=== PATIENT | male | born 1990 | race Caucasian/White ===

== ENCOUNTER 2017-04-13 11:20 | Inpatient (IN) ==
[2017-04-13] MEDS ORDERED: IPRATROPIUM/ALBUTEROL 3 ML AMPUL.NEB NEB ONE ×2 (11:32→13:55)
--- NOTE | 2017-04-13 11:45 | Emergency Department Note ---
General Adult HPI - General Chief complaint: Fever Stated complaint: fever, cough Time Seen by Provider: 04/13/17 11:30 Source: patient Mode of arrival: ambulatory Limitations: no limitations - History of Present Illness HPI Narrative: This patient has been ill for about 2 weeks. She had a lot of nausea vomiting but now is mainly respiratory symptoms. He did get a flu shot this year. 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 - Related Data Home Medications Medication Instructions Recorded Confirmed Escitalopram [Lexapro] 10 mg PO DAILY 04/13/17 04/13/17 Levothyroxine Sodium [Levoxyl] 50 mcg PO DAILY 04/13/17 04/13/17 Mirtazapine [Remeron] 30 mg PO HS 04/13/17 04/13/17 Montelukast [Singular] 10 mg PO HS 04/13/17 04/13/17 Previous Rx's Medication Instructions Recorded Azithromycin [Zithromax] 250 mg PO DAILY #4 tab 04/13/17 Ipratropium/Albuterol [Duoneb] 3 ml NEB Q4HRT #30 ampul.neb 04/13/17 Allergies Allergy/AdvReac Type Severity Reaction Status Date / Time Sulfa (Sulfonamide AdvReac Intermediate Rash Verified 04/13/17 11:22 Antibiotics) Review of Systems All systems ED: reviewed and negative except as stated. Past Medical History - Past Medical History Medical history: Reports: thyroid disease, other (Pneumonia) Surgical history ED: Reports: other (Partial lobectomy) - Social History smoking status: Never smoker Physical Exam Limitations: no limitations General appearance: alert Head: atraumatic, normocephalic Eye: Present: normal appearance ENT: normal exam Neck: Present: normal inspection Chest: Present: normal inspection Respiratory: Present: normal lung sounds bilaterally Cardiovascular: Present: regular rate, normal rhythm, normal heart sounds Abdominal: Present: soft. Absent: distention, tenderness Neurological: Present: alert Psychiatric: Present: normal affect, normal mood Skin: Present: warm, dry, intact Course Vital Signs Temperature 99.7 F H 04/13/17 11:28 Pulse Rate 102 H 04/13/17 11:28 Respiratory Rate 24 H 04/13/17 11:28 Blood Pressure 99/56 04/13/17 11:28 Pulse Oximetry (%) 89 L 04/13/17 11:28 Temperature 99.7 F H 04/13/17 11:28 Pulse Rate 101 H 04/13/17 14:00 Respiratory Rate 20 04/13/17 14:00 Blood Pressure 106/69 04/13/17 12:57 Pulse Oximetry (%) 95 04/13/17 12:57 Medical Decision Making - MDM Narrative Medical decision making narrative: This patient does have a pneumonia and did not tolerate an IV pulled it out and was pretty agitated. However he does not seem that ill to me. He does have a high white count but he has minimal fever. O2 sat was 98 after a breathing treatment. I think he will do okay at home we did give him Zithromax half a bag IV and then a 500 mg tablet p.o. Be discharged on Zithromax and DuoNeb. - Lab Data Lab results reviewed: Yes I reviewed the patient's lab results. Result diagrams: 04/13/17 11:46 04/13/17 11:46 Lab Results 04/13/17 04/13/17 04/13/17 Range/Units 11:46 11:46 12:45 WBC 34.1 H* (4.5-11.0) K/mcL RBC 4.09 L (4.50-5.90) M/mcL Hgb 13.4 L (13.5-16.5) g/dL Hct 39.7 L (41.0-55.0) % MCV 97.2 (80.0-100.0) fL MCH 32.9 (26.0-34.0) pg MCHC 33.8 (31.0-36.0) g/dL RDW 14.0 (11.5-14.5) % Plt Count 221 (140-440) K/mcL MPV 8.9 (7.4-10.4) fL Total Counted 100 Seg Neutrophils % 83 H (38-78) % Band Neutrophils % 10 (0-10) % Lymphocytes % 4 L (15-49) % Monocytes % (Manual) 3 (1-12) % Platelet Estimate Normal (NORMAL) RBC Morphology Normal (NORMAL) VBG Lactic Acid 1.4 (0.5-2.2) mmol/L Sodium 138 (133-145) mmol/L Potassium 4.0 (3.3-5.1) mmol/L Chloride 100 (96-108) mmol/L Carbon Dioxide 26 (22-30) mmol/L Anion Gap 12.0 (8-16) BUN 20 (6-20) mg/dl Creatinine 1.2 (0.7-1.2) mg/dl GFR Calculation 82 Glucose 119 H (70-105) mg/dL Calcium 9.1 (8.6-10.4) mg/dl Total Bilirubin 0.5 (0.0-1.0) mg/dL AST 45 H (0-37) U/l ALT 41 H (0-40) U/l Alkaline Phosphatase 128 H (39-117) U/L Total Protein 7.5 (5.9-8.4) gm/dL Albumin 3.7 (3.2-5.2) gm/dL Globulin 3.8 H (2.2-3.7) gm/dL Albumin/Globulin Ratio 1.0 (1.0-2.3) - Radiology Data Radiology results reviewed: Yes I reviewed the patient's radiology results. Disposition Pt seen by [facility] SPECIALIST/PA only: No Clinical Impression: Community acquired pneumonia Disposition: Home, Self-Care Condition: Good Instructions: Pneumonia (ED) Prescriptions: Ipratropium/Albuterol [Duoneb] 3 ml NEB Q4HRT #30 ampul.neb Azithromycin [Zithromax] 250 mg PO DAILY #4 tab Referrals: Ximena Rosales PA-C [Primary Care Provider] - Time of Disposition: 14:10
[2017-04-13 12:20] LABS: Mean Cell Volume 97.2 fL (80.0-100.0); Mean Corpuscular HGB Conc 33.8 g/dL (31.0-36.0); Mean Corpuscular Hemoglobin 32.9 pg (26.0-34.0); Platelet Count 221 K/mcL (140-440); RBC 4.09 M/mcL (4.50-5.90)
--- NOTE | 2017-04-13 12:32 | XRay Report ---
CLINICAL INFORMATION: Shortness of breath COMPARISON: 04/21/2009 FINDINGS: Heart is upper limits of normal in size. 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 The remaining mediastinum and pulmonary vessels are normal. Moderate sized patchy infiltrate in the lingula partially obscures the heart border and left diaphragm. Probable small left pleural effusion noted. Bones and soft tissues are normal IMPRESSION: Moderate-sized infiltrate in the lingula. 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 Please correlate with clinical history Interpreted and Authenticated by: Porter Conde 04/13/17
[2017-04-13 12:38] LABS: ALT/SGPT 41 U/l (0-40); Albumin 3.7 gm/dL (3.2-5.2); Alkaline Phosphatase 128 U/L (39-117); Blood Urea Nitrogen 20 mg/dl (6-20)
[2017-04-13] MEDS ORDERED: cefTRIAXone 1 GM VIAL IV ONE (12:49)
[2017-04-13] MEDS ORDERED: AZITHROMYCIN 500 MG in DEXTROSE 5% IN WATER 250 ML IV ONE (12:49)
[2017-04-13 12:50] LABS: Band Neutrophils % 10 % (0-10); Lymphocytes % 4 % (15-49); Monocytes % (Manual) 3 % (1-12); Platelet Estimate NORMAL (NORMAL); RBC Morphology NORMAL (NORMAL); Segmented Neutrophils % 83 % (38-78)
[2017-04-13] MEDS ORDERED: 0.9 % SODIUM CHLORIDE 1,000 ML IV ONE (13:02)
[2017-04-13] MEDS ORDERED: AZITHROMYCIN 250 MG TABLET PO ONE (13:47)
[2017-04-13] MEDS ORDERED: predniSONE 20 MG TABLET PO ONE (14:19)
[2017-04-13] MEDS ORDERED: LORazepam 2 MG/ML VIAL IV PRN (15:05)
--- NOTE | 2017-04-13 15:19 | Internal Med History&Physical ---
Medical - H&P: [facility] Patient information: Note initiated : 04/13/17 at 3:09 pm Service Date, if different from initiated Date: [] Patient: Brice Dorantes 27 y/o M admitted on for Fever, Cough. Chief Complaint: [] History of present illness: Mr. Dorantes is a 27 year old Male with h/o down syndrome presents to the ER with mother and care provider, Patient has not been feeling well x 1 week, he had some congestion, and cough, the patients condition worsened over on tuesday when he had significant amounts of nausea and vomiting, he also had some fever, the patients GI symptoms improved but today was noted not to be breathing right, had some shortness of breath and fever and was therefore brought in the hospital for further management History from mother and care provider, pt did not talk to me, but seems to follow commands and was sitting comfortably in the bed. In the ER he had significant leucocytosis, and incrased oxygen need, Osat 88% on room air. He was give antibiotics zithromax, and rocehin, some d uonebs and steroids and admitted to the hospital for further management. pt had removed his IV access and did not wish pulse oximeter or any other devices on him. Mother aware that taking car of him in the hospital will not be easy and that we may have to use sedatives to keep him calm atleast to give Medications, she is agreeable for same. ROS unobtainable: due to mental status Medical - H&P: PMH Medical history: Medical History Community acquired pneumonia (Acute) downs syndrome asthma Surgical history: h/o lobectemy lung Family history: reviewed and not pertinent Social history: lives with parents has care givers Medical - H&P: Meds Home Medications Medication Instructions Recorded Confirmed Type Azithromycin [Zithromax] 250 mg PO DAILY #4 tab 04/13/17 Rx Escitalopram [Lexapro] 10 mg PO DAILY 04/13/17 04/13/17 History Ipratropium/Albuterol [Duoneb] 3 ml NEB Q4HRT #30 ampul.neb 04/13/17 Rx Levothyroxine Sodium [Levoxyl] 50 mcg PO DAILY 04/13/17 04/13/17 History Mirtazapine [Remeron] 30 mg PO HS 04/13/17 04/13/17 History Montelukast [Singular] 10 mg PO HS 04/13/17 04/13/17 History Allergies Allergy/AdvReac Type Severity Reaction Status Date / Time Sulfa (Sulfonamide AdvReac Intermediate Rash Verified 04/13/17 11:22 Antibiotics) Medical - H&P: Exam - Constitutional Vitals: Temp Pulse Resp BP Pulse Ox 99.7 F H 101 H 20 112/68 88 L 04/13/17 11:28 04/13/17 14:00 04/13/17 14:00 04/13/17 13:31 04/13/17 14:16 Exam: GENERAL: The patient is a well-developed, well-nourished in no apparent distress. Is alert and oriented x 1 VITAL SIGNS: Reviewed and as noted elsewhere. HEENT: Head is microchepalic, atraumatic,. Extraocular muscles are intact. Pupils are equal, round, and reactive to light. Nares appeared normal. Mouth appears any without lesions. Mucous membranes are moist. NECK: Normal to inspection, Supple, No lymphadenopathy or thyromegaly. LUNGS: Air entry equal on both sides, no wheezing, crackles or rhonchi noted. No accessory muscles of respiration HEART: Regular rate and rhythm normal, S1 and S2 heard, no Gallop, S3 or Rub Noted, No Gross murmur heard. ABDOMEN: Soft, nontender, and nondistended. Positive bowel sounds. No hepatosplenomegaly was noted. EXTREMITIES: No cyanosis, clubbing, rash, lesions or edema. NEUROLOGIC: Cranial nerves II through XII are grossly intact. Motor and Sensory System Grossly Intact PSYCHIATRIC: did not talk to me, flat affect. SKIN: No ulceration or wounds noted, No jaundice, No rash noted. Medical - H&P: Reslt - Labs CBC & Chem 7: 04/13/17 11:46 04/13/17 11:46 Labs: Short CBC 04/13/17 Range/Units 11:46 WBC 34.1 H* (4.5-11.0) K/mcL Hgb 13.4 L (13.5-16.5) g/dL Hct 39.7 L (41.0-55.0) % Plt Count 221 (140-440) K/mcL BMP 04/13/17 11:46 Sodium 138 Potassium 4.0 Chloride 100 Carbon Dioxide 26 BUN 20 Creatinine 1.2 Glucose 119 H Calcium 9.1 Liver Function 04/13/17 Range/Units 11:46 Total Bilirubin 0.5 (0.0-1.0) mg/dL AST 45 H (0-37) U/l ALT 41 H (0-40) U/l Alkaline Phosphatase 128 H (39-117) U/L Albumin 3.7 (3.2-5.2) gm/dL Medical - H&P: A/P - Narrative A/P Narrative: a/p severe sepsis Pneumonia, community acquired vs aspiration. acute hypoxic resp failure down syndrome abnl LFT Asthma exacerbation Depression? Plan Admit to med surgy Plan to get another IV access Patient is tolerating orals well, bp is stable, and pt will not keep IV for IV fluids so closely monitor hemodynamic status IV rocphin, zithromax and flagyl for pna duonebs and steroids for asthma (no wheeze on my exam but it seems it was present during er exam) resume home medictions for depression/ asthma/ monitor lft likely related to infection, consider workup if worsens. DVT hep Full code Regular diet patietn will be difficult to manage as he is not using oxygen mask or allowing iv asccess. ok to use prn ativan and use oral meds if we are not able to use IV.
[2017-04-13] MEDS ORDERED: HYDROmorphone 2 MG/ML SYRINGE IV PRN (15:43)
[2017-04-13] MEDS ORDERED: ACETAMINOPHEN 325 MG TABLET PO PRN (15:43)
[2017-04-13] MEDS ORDERED: ONDANSETRON 4 MG/2 ML VIAL IV PRN (15:43)
[2017-04-13] MEDS ORDERED: NALOXONE HCL 0.4 MG/ML VIAL IV PRN (15:43)
[2017-04-13] MEDS ORDERED: cefTRIAXone 1 GM in DEXTROSE 5% IN WATER 50 ML IV SCH (15:43)
[2017-04-13] MEDS ORDERED: LORazepam 2 MG/ML VIAL IM ONE ×2 (15:50→18:23)
[2017-04-13] MEDS: IPRATROPIUM/ALBUTEROL 3 ML AMPUL.NEB NEB SCH ×3 (17:35→23:30)
[2017-04-13] MEDS: metroNIDAZOLE 500 MG/100 ML BAG IV SCH ×2 (17:48→21:27)
[2017-04-13] MEDS ORDERED: OLANZapine 5 MG TABLET PO ONE (18:29)
[2017-04-13] MEDS ORDERED: OLANZapine 2.5 MG TABLET PO ONE (18:51)
[2017-04-13] MEDS: DOCUSATE SODIUM 100 MG CAPSULE PO SCH (20:48)
[2017-04-13] MEDS: MIRTAZAPINE 15 MG TABLET PO SCH (20:48)
[2017-04-13] MEDS: MONTELUKAST 10 MG TABLET PO SCH (20:49)
[2017-04-13] MEDS ORDERED: LORazepam 2 MG/ML VIAL IV ONE (20:59)
[2017-04-13] MEDS: 0.9 % SODIUM CHLORIDE 10 ML SYRINGE IV SCH (21:30)
[2017-04-14] MEDS: IPRATROPIUM/ALBUTEROL 3 ML AMPUL.NEB NEB SCH ×6 (04:27→22:45)
[2017-04-14] MEDS: 0.9 % SODIUM CHLORIDE 10 ML SYRINGE IV SCH ×3 (05:10→20:49)
[2017-04-14] MEDS: metroNIDAZOLE 500 MG/100 ML BAG IV SCH ×3 (05:10→21:09)
[2017-04-14 05:40] LABS: Basophils # (Auto) 0 K/mcL (0.0-0.3); Basophils % (Auto) 0 % (0.0-2.0); Eosinophils # (Auto) 0.2 K/mcL (0.0-0.7); Eosinophils % (Auto) 0.7 % (0.0-7.0); Granulocytes % (Auto) 93.5 % (38.0-78.0); Lymphocytes # (Auto) 1.1 K/mcL (1.5-4.8); Lymphocytes % (Auto) 4.5 % (15.5-49.0); Mean Cell Volume 99.1 fL (80.0-100.0); Mean Corpuscular HGB Conc 33.3 g/dL (31.0-36.0); Monocytes # (Auto) 0.3 K/mcL (0.1-0.9); Monocytes % (Auto) 1.3 % (1.0-12.0); Platelet Count 223 K/mcL (140-440); RBC 4.09 M/mcL (4.50-5.90); Red Cell Distribution Width 14.5 % (11.5-14.5)
[2017-04-14 06:04] LABS: ALT/SGPT 33 U/l (0-40); Albumin 3.4 gm/dL (3.2-5.2); Albumin/Globulin Ratio 0.9 (1.0-2.3); Alkaline Phosphatase 126 U/L (39-117); Bilirubin,Direct < 0.2 mg/dL (0.0-0.3); Blood Urea Nitrogen 16 mg/dl (6-20); Gamma Glutamyl Transpeptidase 51 U/L (8-61); Magnesium 2.5 mg/dL (1.6-2.5); Uric Acid 6.8 mg/dL (2.5-8.0)
[2017-04-14] MEDS: predniSONE 20 MG TABLET PO SCH (07:50)
[2017-04-14] MEDS: LEVOTHYROXINE 50 MCG TABLET PO SCH (07:50)
[2017-04-14] MEDS: LORazepam 2 MG/ML VIAL IV PRN ×2 (08:40→20:41)
[2017-04-14] MEDS: DOCUSATE SODIUM 100 MG CAPSULE PO SCH ×2 (09:55→20:40)
[2017-04-14] MEDS: cefTRIAXone 1 GM VIAL IV SCH (09:55)
[2017-04-14] MEDS: AZITHROMYCIN 250 MG in DEXTROSE 5% IN WATER 250 ML IV SCH (09:55)
[2017-04-14] MEDS: ESCITALOPRAM 10 MG TABLET PO SCH (09:55)
[2017-04-14] MEDS: ENOXAPARIN 40 MG/0.4 ML SYRINGE SQ SCH (09:55)
--- NOTE | 2017-04-14 10:20 | Internal Med Progress Note ---
Medical - PN: Subj Patient information: Note initiated : 04/14/17 at 10:09 am Service Date, if different from initiated Date: [] Patient: Brice Dorantes 27 y/o M admitted on 04/13/17 for Fever, Cough. Chief Complaint: [] Interval history: Mr. Dorantes is a 27 year old Male with h/o down syndrome presents to the ER with mother and care provider, Patient has not been feeling well x 1 week, he had some congestion, and cough, the patients condition worsened over on tuesday when he had significant amounts of nausea and vomiting, he also had some fever, the patients GI symptoms improved but today was noted not to be breathing right, had some shortness of breath and fever and was therefore brought in the hospital for further management History from mother and care provider, pt did not talk to me, but seems to follow commands and was sitting comfortably in the bed. In the ER he had significant leucocytosis, and increased oxygen need, Osat 88% on room air. He was give antibiotics zithromax, and rocehin, some d uonebs and steroids and admitted to the hospital for further management. pt had removed his IV access and did not wish pulse oximeter or any other devices on him. Mother aware that taking car of him in the hospital will not be easy and that we may have to use sedatives to keep him calm atleast to give Medications, she is agreeable for same. Colette 23 patient seen examined, overnight issues reviewed, multiple times IV needed to be placed due to patient ripping it off, the patient was given ativan which helped him sleep he still needs oxygen but is non compliant with its use, he is now coughing mother by the bed side IV antibiotics on going, pt non verbal to me, but did allow me to auscultate The patient labs show improvement in wbc, he still needs IV antbiotics, he could do with oral antibiotics and could go home. but should his condition worsen, I would rather have him here than home to intervene as quickly as possible, once he no longer needs oxygen then I would be more comfortable sending him home with oral antibiotics. Pertinent ROS: unable, pt mental status, downs - Constitutional Vitals: Vital Signs Temp Pulse Resp BP Pulse Ox 98.6 F 98 H 20 89/51 93 04/14/17 06:49 04/14/17 07:36 04/14/17 07:36 04/14/17 06:49 04/14/17 07:36 Period Temp Pulse Resp BP Sys/Martinez Pulse Ox Last 24 Hr 97.2 F-101.6 F 77-104 12-24 61-121/38-75 88-100 Intake and Output 04/13/17 04/14/17 04/14/17 21:59 05:59 13:59 Intake Total 470 / 470 525 / 525 Balance 470 / 470 525 / 525 Weight 150 lb 8 oz Intake & Output: Intake & Output 04/13/17 04/14/17 04/14/17 21:59 05:59 13:59 Intake Total 470 / 470 525 / 525 Balance 470 / 470 525 / 525 Weight 150 lb 8 oz Intake: IV 100 / 100 Oral 370 / 370 525 / 525 Other: Meal Breakfast Percent of Meal Consumed 100% Feeding Ability Assist with Tray Set Up # Voids 1 1 Exam: Constitutional; Afebrile, cooperative, alert, not in distress. Eyes- No icterus, , No periorbital swelling Neck- Midline trachea, supple Respiratory system: Air Entry equal on both sides, decreased air entry on left, basilar crackles noted. CVS- Rate rhythm regular, S1,S2 heard, no gallop, no rub. Abdomen- Soft nontender abdomen, no organomegaly, no tenderness, no guarding or rigidity, PEARL DIGGER- AOOx0, moving all extremities, no gross focal deficit noted. Medical - PN: Obj Da - Labs CBC & Chem 7: 04/14/17 04:34 04/14/17 04:34 Labs: Abnormal Lab Results 04/14/17 04/14/17 04/13/17 04:34 04:34 11:46 WBC 23.7 H RBC 4.09 L Hgb Hct 40.5 L Gran % 93.5 H Lymph % (Auto) 4.5 L Gran # 22.2 H Lymph # (Auto) 1.1 L Seg Neutrophils % Lymphocytes % Glucose 156 H 119 H AST 45 H ALT 41 H Alkaline Phosphatase 126 H 128 H Globulin 4.0 H 3.8 H Albumin/Globulin Ratio 0.9 L 04/13/17 11:46 WBC 34.1 H* RBC 4.09 L Hgb 13.4 L Hct 39.7 L Gran % Lymph % (Auto) Gran # Lymph # (Auto) Seg Neutrophils % 83 H Lymphocytes % 4 L Glucose AST ALT Alkaline Phosphatase Globulin Albumin/Globulin Ratio Meds: Medications Acetaminophen (Tylenol) 650 mg PO Q6HP PRN PRN Reason: PAIN/FEVER > 101 Last Admin: 04/13/17 18:14 Dose: 650 mg Albuterol/Ipratropium (Duoneb) 3 ml NEB Q4HRT [facility] Last Admin: 04/14/17 07:26 Dose: 3 ml Ceftriaxone Sodium (Rocephin) 1 gm IV DAILY [facility] Last Admin: 04/14/17 09:55 Dose: 1 gm Docusate Sodium (Colace) 100 mg PO BID [facility] Last Admin: 04/14/17 09:55 Dose: 100 mg Enoxaparin Sodium (Lovenox) 40 mg SQ DAILY [facility] Last Admin: 04/14/17 09:55 Dose: Not Given Escitalopram Oxalate (Lexapro) 10 mg PO DAILY [facility] Last Admin: 04/14/17 09:55 Dose: 10 mg Hydromorphone HCl (Dilaudid) 0.5 mg IV Q2HP PRN PRN Reason: PAIN LEVEL > 6 Azithromycin 250 mg/ Dextrose 250 mls @ 250 mls/hr IV DAILY [facility] Stop: 04/17/17 09:59 Last Admin: 04/14/17 09:55 Dose: 250 mls/hr Metronidazole (Flagyl) 500 mg in 100 mls @ 100 mls/hr IV Q8H [facility] Last Admin: 04/14/17 05:10 Dose: 100 mls/hr Levothyroxine Sodium (Synthroid) 50 mcg PO ACB [facility] Last Admin: 04/14/17 07:50 Dose: 50 mcg Lorazepam (Ativan) 1 mg IV Q2-4HP PRN PRN Reason: ANXIETY/SEDATION Last Admin: 04/14/17 08:40 Dose: 1 mg Mirtazapine (Remeron) 30 mg PO HS [facility] Last Admin: 04/13/17 20:48 Dose: 30 mg Montelukast Sodium (Singular) 10 mg PO HS [facility] Last Admin: 04/13/17 20:49 Dose: 10 mg Naloxone HCl (Narcan) 0.1 mg IV Q2MIN PRN PRN Reason: Opiate Reversal Ondansetron HCl (Zofran) 4 mg IV Q6HP PRN PRN Reason: Nausea And Vomiting Prednisone (Prednisone) 40 mg PO [facility] Stop: 04/18/17 07:59 Last Admin: 04/14/17 07:50 Dose: 40 mg Sodium Chloride (Saline Flush) 10 ml IV Q8 [facility] Last Admin: 04/14/17 05:10 Dose: 10 ml Medical - PN: A/P - Time Spent With Patient Total time spent is greater than 50% in coordination of care (as documented) at patient's floor/unit and/or counseling patient: - Narrative A/P Narrative: a/p severe sepsis Pneumonia, community acquired vs aspiration. acute hypoxic resp failure down syndrome abnl LFT Asthma exacerbation Depression? Plan monitor on med surg oxygen to keep osat > 90 as much as possible continue iv flagyl, zithromax and rocephin, continue nebulizer treatment and prendisone Continue home meds Mother updated with plan of care and she agreess with same Ok to use IV ativan to prevent excessive anxiety, agitation and to avoid ripping of IV access, to ensure we can give antibiotics. DVT hep Full code Regular diet Medical - PN: Qual - VTE Deep Vein Thrombosis/Pulmonary Embolism Present on Admission: No
[2017-04-14] MEDS: MONTELUKAST 10 MG TABLET PO SCH (20:40)
[2017-04-14] MEDS: MIRTAZAPINE 15 MG TABLET PO SCH (20:40)
[2017-04-15] MEDS: IPRATROPIUM/ALBUTEROL 3 ML AMPUL.NEB NEB SCH ×2 (04:35→07:04)
[2017-04-15] MEDS: LORazepam 2 MG/ML VIAL IV PRN (05:16)
[2017-04-15] MEDS: 0.9 % SODIUM CHLORIDE 10 ML SYRINGE IV SCH (05:17)
[2017-04-15] MEDS: metroNIDAZOLE 500 MG/100 ML BAG IV SCH (05:17)
[2017-04-15 06:02] LABS: Basophils # (Auto) 0 K/mcL (0.0-0.3); Basophils % (Auto) 0 % (0.0-2.0); Eosinophils # (Auto) 0.1 K/mcL (0.0-0.7); Eosinophils % (Auto) 0.3 % (0.0-7.0); Granulocytes % (Auto) 85.5 % (38.0-78.0); Lymphocytes # (Auto) 2.5 K/mcL (1.5-4.8); Lymphocytes % (Auto) 10.6 % (15.5-49.0); Mean Cell Volume 100.5 fL (80.0-100.0); Mean Corpuscular Hemoglobin 34.1 pg (26.0-34.0); Monocytes # (Auto) 0.8 K/mcL (0.1-0.9); Monocytes % (Auto) 3.6 % (1.0-12.0); Platelet Count 254 K/mcL (140-440); RBC 3.89 M/mcL (4.50-5.90); Red Cell Distribution Width 14.2 % (11.5-14.5)
[2017-04-15 06:17] LABS: ALT/SGPT 26 U/l (0-40); Albumin 3.2 gm/dL (3.2-5.2); Albumin/Globulin Ratio 0.9 (1.0-2.3); Alkaline Phosphatase 111 U/L (39-117); Bilirubin,Direct < 0.2 mg/dL (0.0-0.3); Blood Urea Nitrogen 16 mg/dl (6-20); Gamma Glutamyl Transpeptidase 46 U/L (8-61); Magnesium 2.2 mg/dL (1.6-2.5); Uric Acid 6.8 mg/dL (2.5-8.0)
--- NOTE | 2017-04-15 08:08 | XRay Report ---
CLINICAL INFORMATION: Follow pneumonia COMPARISON: 04/13/2017 FINDINGS: The heart is normal in size. 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 Remaining mediastinum and pulmonary vessels are normal. Moderate sized lingular infiltrate has worsened slightly. The remaining lungs are clear. 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 If this is previously unknown, consider chest CT with contrast Interpreted and Authenticated by: Porter Conde 04/15/17
[2017-04-15] MEDS: LEVOTHYROXINE 50 MCG TABLET PO SCH (09:02)
[2017-04-15] MEDS: ESCITALOPRAM 10 MG TABLET PO SCH (09:02)
[2017-04-15] MEDS: predniSONE 20 MG TABLET PO SCH (09:02)
[2017-04-15] MEDS: DOCUSATE SODIUM 100 MG CAPSULE PO SCH (09:05)
[2017-04-15] MEDS: ENOXAPARIN 40 MG/0.4 ML SYRINGE SQ SCH (09:06)
[2017-04-15] MEDS: cefTRIAXone 1 GM VIAL IV SCH (09:06)
[2017-04-15] MEDS: AZITHROMYCIN 250 MG in DEXTROSE 5% IN WATER 250 ML IV SCH (09:07)
--- NOTE | 2017-04-15 10:03 | Discharge Summary ---
Medical - DS: Prov Patient information: Note initiated : 04/15/17 at 9:53 am Service Date, if different from initiated Date: [] Patient: Brice Dorantes 27 y/o M admitted on 04/13/17 for Fever, Cough. Chief Complaint: [] Date of admission: 04/13/17 15:27 Discharge date: 04/15/17 Primary care physician: Ximena Rosales Admitting clinician: Mitchel Gregorio Discharging clinician: Mitchel Gregorio Medical - DS: Meds - Discharge Medications Prescriptions: Ipratropium/Albuterol [Duoneb] 3 ml NEB Q4HRT #30 ampul.neb Levofloxacin 750 mg PO DAILY #5 tab predniSONE [Prednisone] 40 mg PO [facility] #6 tab Active and Home Medications: Home Medications Azithromycin [Zithromax] 250 mg PO DAILY #4 tab 04/13/17 [Rx Last Taken Unknown] Escitalopram [Lexapro] 10 mg PO DAILY 04/13/17 [History Confirmed 04/13/17 Last Taken Unknown] Ipratropium/Albuterol [Duoneb] 3 ml NEB Q4HRT #30 ampul.neb 04/13/17 [Rx Last Taken Unknown] Levothyroxine Sodium [Levoxyl] 50 mcg PO DAILY 04/13/17 [History Confirmed 04/13 Last Taken Unknown] Mirtazapine [Remeron] 30 mg PO HS 04/13/17 [History Confirmed 04/13/17 Last Taken Unknown] Montelukast [Singular] 10 mg PO HS 04/13/17 [History Confirmed 04/13/17 Last Taken Unknown] Medical - DS: Hosp Hospital course: Mr. Dorantes is a 27 year old Male with h/o down syndrome presented to the ER with mother and care provider, Patient has not been feeling well x 1 week, he had some congestion, and cough, the patients condition worsened over on tuesday when he had significant amounts of nausea and vomiting, he also had some fever, the patients GI symptoms improved but today was noted not to be breathing right, had some shortness of breath and fever and was therefore brought in the hospital for further management History from mother and care provider, pt did not talk to me, but seems to follow commands and was sitting comfortably in the bed. In the ER he had significant leucocytosis, and increased oxygen need, Osat 88% on room air. He was give antibiotics zithromax, and rocehin, some d uonebs and steroids and admitted to the hospital for further management. Pneumonia: left lingular pneumonia, blood cx neg, unable to get sputum sample, patient was treated with rocephin flagyl and zithromax, with improvement in wbc and fever, His wbc at the time of discharge wbc is still high, at 24 but improving,(could also be high due to steroid use) pt has no signs of sepsis, his bp is stable, he is eating and feeding him self, and he is afebrile, his CXR showed mild worsening? but clinically the patient is stable and improving. He no longer needs oxygen and his oxygen saturations is 91% on room air, He has not been compliant with his treatment while in the hospital anyways and has not used oxygen, he has removed his IV Access multiple times during the hospital stay, and needed IV ativan to help him calm down to get antibiotics. He is taking his oral meds fine. Asthma, wheeze noted on presentation, needing duonebs and steroids, on discharge no wheezing present. I feel at this time, that risk of him progressing to septic shock is much lower , he no longer needs antibiotics and he will be much more calm and comfortable at his home surroundings than in the hospital Will discharge home today with mother. He is ambulatory, feeding himself and hemodynamically stable. Discharge diagnosis: Pneumonia - Time Spent with Patient Total time spent providing and/or coordinating discharge services: Greater than 30 minutes Medical - DS: Exam - Constitutional Vitals: Vital Signs Temp Pulse Pulse Resp BP BP Pulse Ox 04/15/17 09:41 97.7 F 20 110/66 91 04/15/17 08:00 98 H 91 04/15/17 07:06 92 H 20 04/15/17 06:36 97.7 F 20 95/49 89 L 04/15/17 04:41 98.8 F 81 18 119/65 93 04/14/17 23:49 98.8 F 89 20 112/65 91 04/14/17 22:47 91 H 26 H 93 04/14/17 22:45 91 H 26 H 04/14/17 20:56 93 04/14/17 20:50 99.4 F H 98 H 26 H 112/73 93 04/14/17 20:03 98 H 18 04/14/17 20:00 93 04/14/17 15:33 98.5 F 18 102/59 92 04/14/17 15:00 92 04/14/17 14:37 98 H 18 04/14/17 11:58 98.6 F 18 111/58 92 04/14/17 11:00 92 04/14/17 10:29 97 H 20 Intake and Output 04/14/17 04/15/17 04/15/17 21:59 05:59 13:59 Intake Total 1700 / 1700 250 / 250 Balance 1700 / 1700 250 / 250 Intake: IV 100 / 100 100 / 100 Oral 1600 / 1600 150 / 150 Other: # Voids 1 # of times incontinent of 1 Bowels Weight 153 lb 8 oz Additional comments: Constitutional; Afebrile, cooperative, alert, not in distress. Eyes- No icterus, , No periorbital swelling Neck- Midline trachea, supple Respiratory system: Air Entry equal has some left basilar crackles, but no wheezing or rhonchi. CVS- Rate rhythm regular, S1,S2 heard, no gallop, no rub. Abdomen- Soft nontender abdomen, no organomegaly, no tenderness, no guarding or rigidity, [employer]- AOOx1, moving all extremities, no gross focal deficit noted. Medical - DS: Data Labs on day of discharge: Labs from last 24 hours 04/15/17 04/15/17 04:28 04:28 WBC 23.3 H RBC 3.89 L Hgb 13.3 L Hct 39.1 L MCV 100.5 H MCH 34.1 H MCHC 34.0 RDW 14.2 Plt Count 254 MPV 9.3 Gran % 85.5 H Lymph % (Auto) 10.6 L [place] % (Auto) 3.6 Eos % (Auto) 0.3 Baso % (Auto) 0 Gran # 19.9 H Lymph # (Auto) 2.5 [place] # (Auto) 0.8 Eos # (Auto) 0.1 Baso # (Auto) 0 Sodium 143 Potassium 4.6 Chloride 107 Carbon Dioxide 24 Anion Gap 12.0 BUN 16 Creatinine 0.9 GFR Calculation 117 Glucose 103 Uric Acid 6.8 Calcium 9.2 Phosphorus 3.3 Magnesium 2.2 Total Bilirubin < 0.2 Direct Bilirubin < 0.2 GGT 46 AST 19 ALT 26 Alkaline Phosphatase 111 Lactate Dehydrogenase 227 Total Protein 6.9 Albumin 3.2 Globulin 3.7 Albumin/Globulin Ratio 0.9 L Triglycerides 74 Preliminary micro results at discharge 04/13/17 13:19 Blood Culture - Preliminary Blood 04/13/17 13:27 Blood Culture - Preliminary Blood Medical - DS: A/P - Patient/Caregiver Discharge Instructions Activity: increase activity as tolerated Diet: Regular Diet Additional Instructions: Take antibiotics as prescribed x 7 days Go to the ER if worsening symptoms, fever, chills or any other significant concerns. Follow up with PCP in 7 days Prescriptions: Ipratropium/Albuterol [Duoneb] 3 ml NEB Q4HRT #30 ampul.neb Azithromycin [Zithromax] 250 mg PO DAILY #4 tab - Follow up Plan Follow up with: Ximena Rosales PA-C [Primary Care Provider] - (Call/Schedule follow up appointment to be seen in 1-2 weeks.) Disposition: Home, Self-Care Prognosis: Fair Rehab Potential: Fair I certify that the patient requires SNF services: No Overall status at discharge: patient is progressing back to baseline Medical - DS: Qual - VTE Deep Vein Thrombosis/Pulmonary Embolism Present on Admission: No
== END 2017-04-15 11:50 | disposition home or self-care (01) | DRG 871 ==
LOC: ED 11:20 → MEDSUR 15:27
PROVIDERS: ADMIT Internal Medicine; ATTEND Internal Medicine